=== PATIENT | male | born 1980 | race African-American/Black ===

== ENCOUNTER 2024-05-12 11:16 | Emergency (ER) | payer SELFPAY ==
[~2024-05-12] VITALS: Ht 182.9 cm; Wt 82.0 kg
[2024-05-12 11:18] VITALS: O2SAT 100
[2024-05-12 11:56] VITALS: BP 126/81; PULSE 65; RESP 19; TEMP 98.2
[2024-05-12] MEDS: IBUPROFEN 800MG TABLET PO ONE (11:56)
== END 2024-05-12 14:03 | disposition home or self-care (01) ==
LOC: ER 12:07
DX: S83.8X1A Sprain of other specified parts of right knee, initial encounter (principal); V18.9XXA Unspecified pedal cyclist injured in noncollision transport accident in traffic accident, initial encounter; Y93.89 Activity, other specified; Y92.89 Other specified places as the place of occurrence of the external cause; Y99.8 Other external cause status
CPT/HCPCS: 73562; 99284; Z7610